=== PATIENT | male | born 1960 | race Caucasian/White ===

== ENCOUNTER → 2017-06-24 | Outpatient (CLI) | payer SELFPAY ==
[~2017-06-24] MED LIST: ACYC400 PO; CEPH500; Cipro500 MG PO; DAPS100; Flagyl250 MG PO; LAMZIDT; OXYACE5T PO; PREG75 PO; PROC5 PO; REYATAZ; RITO100
[2017-06-24 17:00] LABS: BASOPHILS ABSOLUTE AUTO 0.02 K/mm3 (0.00-0.23); BASOPHILS PERCENT AUTO 0 % (0-2); EOSINOPHILS ABSOLUTE AUTO 0.03 K/mm3 (0.00-0.68); EOSINOPHILS PERCENT AUTO 1 % (0-6); Hematocrit 42.3 % (37.0-53.0); Hemoglobin 13.7 g/dL (13.5-17.5); IMMATURE GRAN ABSOLUTE AUTO 0.02 K/mm3 (0.00-0.10); IMMATURE GRAN PERCENT AUTO 0 % (0-1); LYMPHOCYTES PERCENT AUTO 27 % (21-46); MONOCYTES ABSOLUTE AUTO 0.36 K/mm3 (0.16-1.47); MONOCYTES PERCENT AUTO 6 % (4-13); Mean Corpuscular HGB 29.3 pg (26.0-34.0); Mean Corpuscular HGB Conc 32.4 g/dL (31.5-36.5); Mean Corpuscular Volume 91 fL (80-100); Mean Platelet Volume 10.3 fL (9.1-12.4); NEUTROPHILS ABSOLUTE AUTO 3.96 K/mm3 (1.96-9.15); NEUTROPHILS PERCENT AUTO 66 % (41-73); Platelet Count 213 K/mm3 (150-400); RDW Coefficient Variation 14.1 % (11.7-14.2); RDW Standard Deviation 46.6 fL (35.1-46.3); Red Blood Cell Count 4.67 M/mm3 (4.30-5.90); White Blood Cell Count 5.99 K/mm3 (4.00-11.30)
[2017-06-24 17:16] LABS: Alanine Aminotransfer (ALT/SGP 28 U/L (12-78); Albumin/Globulin Ratio 0.7 (0.8-1.8); Alk Phos 99 U/L (50-136); Anion Gap 7 mmol/L (6-16); Aspartate Aminotrans (AST/SGOT 37 U/L (12-37); Bilirubin, Total 0.3 mg/dL (0.1-1.0); Blood Urea Nitrogen 11 mg/dL (8-24); Bun/Creatinine Ratio 18.5 (12.0-20.0); CO2, Blood 26 mmol/L (21-32); Calcium, Blood 8.3 mg/dL (8.5-10.1); Chloride, Blood 104 mmol/L (98-108); Globulin, Blood 4.3 g/dL (2.2-4.0); Glomerular Filtration Rate >60 (60-); Glucose, Blood 75 mg/dL (70-99); Potassium, Blood 4.5 mmol/L (3.5-5.5); Sodium, Blood 137 mmol/L (136-145); Total Protein, Blood 7.3 g/dL (6.4-8.2)
== END ==
LOC: LAB 16:28
PROVIDERS: Nurse Practitioner
DX: R53.83 Other fatigue (principal)
CPT/HCPCS: 80053; 83690; 85025

== ENCOUNTER 2017-06-25 07:41 | Emergency (ER) | payer MEDICARE ==
[~2017-06-25] VITALS: Ht 175.3 cm; Wt 63.5 kg
[~2017-06-25 07:41] MED LIST changes: -Cipro500 MG PO; -Flagyl250 MG PO; -PROC5 PO
[2017-06-25 11:51] LABS: Adenovirus F 40/41 Not Detected (NOT DETECT); Astrovirus Not Detected (NOT DETECT); Campylobacter Sp Not Detected (NOT DETECT); Cryptosporidium Not Detected (NOT DETECT); Cyclospora Cayetanensis Not Detected (NOT DETECT); E. Coli O157 Not Detected (NOT DETECT); Enteroaggregative E. coli-EAEC Not Detected (NOT DETECT); Enterotoxigenic E. coli-ETEC Not Detected (NOT DETECT); Giardia Lamblia Not Detected (NOT DETECT); Norovirus GI/GII Not Detected (NOT DETECT); Plesiomonas Shigelloides Not Detected (NOT DETECT); Rotavirus A Not Detected (NOT DETECT); Salmonella Sp Not Detected (NOT DETECT); Shiga Toxin-prod E. coli-STEC Not Detected (NOT DETECT); Shigella/Enteroin E. coli-EIEC Not Detected (NOT DETECT); Vibrio Cholerae Not Detected (NOT DETECT); Vibrio Sp Not Detected (NOT DETECT); Yersinia Enterocolitica Not Detected (NOT DETECT)
[2017-06-25 13:36] LABS: Enteropathogenic E. coli-EPEC Detected (NOT DETECT)
[2017-06-25 13:37] LABS: Entamoeba Histolytica Detected (NOT DETECT); Sapovirus Detected (NOT DETECT)
[2017-06-25] MEDS ORDERED: Flagyl250 MG PO (13:52)
[2017-06-25] MEDS ORDERED: PROC5 PO (13:52)
[2017-06-25] MEDS ORDERED: Cipro500 MG PO (13:52)
== END 2017-06-25 14:50 | disposition home or self-care (01) ==
LOC: ER 07:41
PROVIDERS: Internal Medicine
DX: A04.0 Enteropathogenic Escherichia coli infection (principal); B82.9 Intestinal parasitism, unspecified; B20 Human immunodeficiency virus [HIV] disease; Z88.2 Allergy status to sulfonamides; Z79.2 Long term (current) use of antibiotics; Z79.899 Other long term (current) drug therapy
CPT/HCPCS: 87507; 96374; 96375; 99283; J2405; J3490

== ENCOUNTER 2019-04-15 13:20 | Inpatient (IN) | payer MEDICARE ==
[~2019-04-15] VITALS: Ht 175.3 cm; Wt 67.9 kg
[~2019-04-15 13:20] MED LIST changes: +Cipro500 MG PO; -DAPS100; +DAPS100 PO; +Flagyl250 MG PO; +NORVIR100 MG PO; +PROC5 PO; -REYATAZ; +REYATAZ PO; -RITO100
[2019-04-15 14:55] LABS: Source, Urine Clean Catch
[2019-04-15 14:58] LABS: Bilirubin, Urine Neg (Neg); Blood, Urine Neg (Neg); Glucose Qualitative, Urine Neg (Neg); Ketones, Urine Neg (Neg); Leukocyte Esterase, Urine 1+ (Neg); Nitrite, Urine Neg (Neg); Protein, Urine Neg (Neg); Specific Gravity, Urine 1.015 (1.003-1.022); Urobilinogen, Urine NORM (Normal)
[2019-04-15 15:03] LABS: BASOPHILS ABSOLUTE AUTO 0.01 K/mm3 (0.00-0.23); BASOPHILS PERCENT AUTO 0 % (0-2); EOSINOPHILS ABSOLUTE AUTO 0.02 K/mm3 (0.00-0.68); EOSINOPHILS PERCENT AUTO 0 % (0-6); Hematocrit 42.5 % (37.0-53.0); Hemoglobin 14.3 g/dL (13.5-17.5); IMMATURE GRAN ABSOLUTE AUTO 0.03 K/mm3 (0.00-0.10); IMMATURE GRAN PERCENT AUTO 0 % (0-1); LYMPHOCYTES ABSOLUTE AUTO 0.66 K/mm3 (0.84-5.20); LYMPHOCYTES PERCENT AUTO 5 % (21-46); MONOCYTES ABSOLUTE AUTO 0.67 K/mm3 (0.16-1.47); MONOCYTES PERCENT AUTO 5 % (4-13); Mean Corpuscular HGB 30.4 pg (26.0-34.0); Mean Corpuscular HGB Conc 33.6 g/dL (31.5-36.5); Mean Corpuscular Volume 90 fL (80-100); Mean Platelet Volume 10.2 fL (9.1-12.4); NEUTROPHILS ABSOLUTE AUTO 11.63 K/mm3 (1.96-9.15); NEUTROPHILS PERCENT AUTO 89 % (41-73); Platelet Count 182 K/mm3 (150-400); RDW Coefficient Variation 15.2 % (11.7-14.2); RDW Standard Deviation 50.2 fL (35.1-46.3); White Blood Cell Count 13.02 K/mm3 (4.00-11.30)
[2019-04-15 15:21] LABS: Alanine Aminotransfer (ALT/SGP 27 U/L (12-78); Albumin, Blood 3.6 g/dL (3.4-5.0); Alk Phos 68 U/L (50-136); Anion Gap 6 mmol/L (6-16); Aspartate Aminotrans (AST/SGOT 28 U/L (12-37); Bilirubin, Total 0.5 mg/dL (0.1-1.0); Blood Urea Nitrogen 12 mg/dL (8-24); Bun/Creatinine Ratio 17.8 (12.0-20.0); CO2, Blood 24 mmol/L (21-32); Calcium, Blood 8.7 mg/dL (8.5-10.1); Chloride, Blood 107 mmol/L (98-108); Creatinine, Blood 0.67 mg/dL (0.60-1.20); Globulin, Blood 3.7 g/dL (2.2-4.0); Glomerular Filtration Rate >60 (60-); Glucose, Blood 86 mg/dL (70-99); Potassium, Blood 3.8 mmol/L (3.5-5.5); Sodium, Blood 137 mmol/L (136-145); Total Protein, Blood 7.3 g/dL (6.4-8.2)
[2019-04-15 15:24] LABS: Appearance, Urine Hazy (Clear); Color, Urine Yellow (P-Yellow)
[2019-04-15 15:26] LABS: Bacteria Rare /hpf; Red Blood Cells, Urine 0-2 /hpf (0-2); Squamous Epithelial Cells Not Seen /hpf (Few)
[2019-04-15] MEDS ORDERED: TRIUMEQ TABLET1 EACH PO (19:14)
[2019-04-15] MEDS ORDERED: TAMSULOSIN HCL0.4 M1 PO (19:15)
[2019-04-16 05:07] LABS: BASOPHILS ABSOLUTE AUTO 0.01 K/mm3 (0.00-0.23); BASOPHILS PERCENT AUTO 0 % (0-2); EOSINOPHILS ABSOLUTE AUTO 0.03 K/mm3 (0.00-0.68); EOSINOPHILS PERCENT AUTO 0 % (0-6); Hematocrit 37.3 % (37.0-53.0); Hemoglobin 12.2 g/dL (13.5-17.5); IMMATURE GRAN ABSOLUTE AUTO 0.02 K/mm3 (0.00-0.10); IMMATURE GRAN PERCENT AUTO 0 % (0-1); LYMPHOCYTES ABSOLUTE AUTO 0.71 K/mm3 (0.84-5.20); LYMPHOCYTES PERCENT AUTO 9 % (21-46); MONOCYTES ABSOLUTE AUTO 0.23 K/mm3 (0.16-1.47); MONOCYTES PERCENT AUTO 3 % (4-13); Mean Corpuscular HGB Conc 32.7 g/dL (31.5-36.5); Mean Corpuscular Volume 92 fL (80-100); NEUTROPHILS ABSOLUTE AUTO 7.29 K/mm3 (1.96-9.15); NEUTROPHILS PERCENT AUTO 88 % (41-73); Platelet Count 155 K/mm3 (150-400); RDW Coefficient Variation 15.3 % (11.7-14.2); RDW Standard Deviation 50.2 fL (35.1-46.3); Red Blood Cell Count 4.06 M/mm3 (4.30-5.90); White Blood Cell Count 8.29 K/mm3 (4.00-11.30)
[2019-04-16 05:24] LABS: Anion Gap 7 mmol/L (6-16); Blood Urea Nitrogen 14 mg/dL (8-24); Bun/Creatinine Ratio 16.6 (12.0-20.0); CO2, Blood 24 mmol/L (21-32); Calcium, Blood 7.7 mg/dL (8.5-10.1); Chloride, Blood 107 mmol/L (98-108); Creatinine, Blood 0.84 mg/dL (0.60-1.20); Glomerular Filtration Rate >60 (60-); Glucose, Blood 88 mg/dL (70-99); Potassium, Blood 3.6 mmol/L (3.5-5.5); Sodium, Blood 138 mmol/L (136-145)
[2019-04-17 09:19] LABS: BASOPHILS ABSOLUTE AUTO 0.02 K/mm3 (0.00-0.23); BASOPHILS PERCENT AUTO 1 % (0-2); EOSINOPHILS ABSOLUTE AUTO 0.16 K/mm3 (0.00-0.68); EOSINOPHILS PERCENT AUTO 4 % (0-6); Hematocrit 36.2 % (37.0-53.0); Hemoglobin 11.9 g/dL (13.5-17.5); IMMATURE GRAN ABSOLUTE AUTO 0.01 K/mm3 (0.00-0.10); IMMATURE GRAN PERCENT AUTO 0 % (0-1); LYMPHOCYTES ABSOLUTE AUTO 1.04 K/mm3 (0.84-5.20); LYMPHOCYTES PERCENT AUTO 27 % (21-46); MONOCYTES ABSOLUTE AUTO 0.23 K/mm3 (0.16-1.47); MONOCYTES PERCENT AUTO 6 % (4-13); Mean Corpuscular HGB 30.1 pg (26.0-34.0); Mean Corpuscular HGB Conc 32.9 g/dL (31.5-36.5); Mean Corpuscular Volume 92 fL (80-100); Mean Platelet Volume 10.6 fL (9.1-12.4); NEUTROPHILS ABSOLUTE AUTO 2.44 K/mm3 (1.96-9.15); NEUTROPHILS PERCENT AUTO 63 % (41-73); Platelet Count 148 K/mm3 (150-400); RDW Standard Deviation 49.9 fL (35.1-46.3); Red Blood Cell Count 3.95 M/mm3 (4.30-5.90)
[2019-04-18 05:03] LABS: BASOPHILS ABSOLUTE AUTO 0.02 K/mm3 (0.00-0.23); BASOPHILS PERCENT AUTO 0 % (0-2); EOSINOPHILS ABSOLUTE AUTO 0.11 K/mm3 (0.00-0.68); EOSINOPHILS PERCENT AUTO 2 % (0-6); Hematocrit 38.7 % (37.0-53.0); Hemoglobin 12.8 g/dL (13.5-17.5); IMMATURE GRAN ABSOLUTE AUTO 0.02 K/mm3 (0.00-0.10); IMMATURE GRAN PERCENT AUTO 0 % (0-1); LYMPHOCYTES PERCENT AUTO 27 % (21-46); MONOCYTES ABSOLUTE AUTO 0.32 K/mm3 (0.16-1.47); MONOCYTES PERCENT AUTO 7 % (4-13); Mean Corpuscular HGB 29.9 pg (26.0-34.0); Mean Corpuscular HGB Conc 33.1 g/dL (31.5-36.5); Mean Corpuscular Volume 90 fL (80-100); Mean Platelet Volume 10.9 fL (9.1-12.4); NEUTROPHILS ABSOLUTE AUTO 2.84 K/mm3 (1.96-9.15); NEUTROPHILS PERCENT AUTO 63 % (41-73); Platelet Count 174 K/mm3 (150-400); RDW Coefficient Variation 15.1 % (11.7-14.2); RDW Standard Deviation 49.3 fL (35.1-46.3); Red Blood Cell Count 4.28 M/mm3 (4.30-5.90); White Blood Cell Count 4.51 K/mm3 (4.00-11.30)
[2019-04-18 05:18] LABS: Anion Gap 6 mmol/L (6-16); Blood Urea Nitrogen 11 mg/dL (8-24); Bun/Creatinine Ratio 13.6 (12.0-20.0); CO2, Blood 26 mmol/L (21-32); Calcium, Blood 8.5 mg/dL (8.5-10.1); Chloride, Blood 109 mmol/L (98-108); Creatinine, Blood 0.81 mg/dL (0.60-1.20); Glomerular Filtration Rate >60 (60-); Glucose, Blood 83 mg/dL (70-99); Sodium, Blood 141 mmol/L (136-145)
[2019-04-19] MEDS ORDERED: AMOCLA500 PO (11:28)
[2019-04-22 04:07] LABS: ANTI-DNASE B STREP ANTIBODIES <78 U/mL (0-120)
[2019-04-22 17:07] LABS: LOG10 HIV-1 RNA 1.477 (.)
== END 2019-04-19 11:46 | disposition home or self-care (01) | DRG 976 ==
LOC: ER 13:20 → MEDS 18:37
PROVIDERS: Internal Medicine; Internal Medicine Infectious Disease; Nurse Practitioner Acute Care; Physician Assistant; ADMIT Family Medicine
DX: A41.9 Sepsis, unspecified organism (principal); B20 Human immunodeficiency virus [HIV] disease; N49.2 Inflammatory disorders of scrotum; F17.210 Nicotine dependence, cigarettes, uncomplicated; F32.9 Major depressive disorder, single episode, unspecified; G43.909 Migraine, unspecified, not intractable, without status migrainosus
CPT/HCPCS: 36415; 74177; 76870; 80048; 80053; 80202; 81001; 83605; 83690; 85025; 86060; 86215; 87040; 87086; 87536; 96361; 96365-59; 96375; 99285-25; A9270; J0696; J1170; J1885; J2405; J2543; J3370; J7030; J7050; Q9967

== ENCOUNTER → 2019-06-12 | Outpatient (CLI) | payer MEDICARE ==
[~2019-06-12] MED LIST changes: +AMOCLA500 PO; +TAMSULOSIN HCL0.4 M1 PO; +TRIUMEQ TABLET1 EACH PO
== END | disposition home or self-care (01) ==
LOC: LAB 07:54 → LAB SHORT 07:54
DX: L02.414 Cutaneous abscess of left upper limb (principal); B95.61 Methicillin susceptible Staphylococcus aureus infection as the cause of diseases classified elsewhere
CPT/HCPCS: 87070; 87075; 87077; 87147; 87186; 87205

== ENCOUNTER 2019-07-04 18:05 | Emergency (ER) | payer MEDICARE ==
[~2019-07-04] VITALS: Ht 175.3 cm; Wt 66.7 kg
[2019-07-04] MEDS ORDERED: Vibramycin100 MG PO (18:25)
[2019-07-04] MEDS ORDERED: CEPH500 PO (18:25)
== END 2019-07-04 19:20 | disposition home or self-care (01) ==
LOC: ER 18:05
DX: L03.115 Cellulitis of right lower limb (principal); B20 Human immunodeficiency virus [HIV] disease; Z88.2 Allergy status to sulfonamides; Z79.899 Other long term (current) drug therapy
CPT/HCPCS: 99283; A9270-GY

== ENCOUNTER → 2019-10-14 | Outpatient (CLI) | payer MEDICARE ==
[~2019-10-14] MED LIST changes: +CEPH500 PO; +Robaxin-750750 MG PO; +Vibramycin100 MG PO
== END | disposition home or self-care (01) ==
LOC: LAB SHORT 18:47 → LAB 18:47
DX: L02.91 Cutaneous abscess, unspecified (principal)
CPT/HCPCS: 87070; 87075; 87077; 87147; 87186; 87205

== ENCOUNTER 2019-11-07 08:13 | Emergency (ER) | payer MEDICARE ==
[~2019-11-07] VITALS: Ht 175.3 cm; Wt 68.0 kg
[~2019-11-07 08:13] MED LIST changes: -Robaxin-750750 MG PO
[2019-11-07 09:00] LABS: Source, Urine Catheter
[2019-11-07 09:10] LABS: Appearance, Urine Bloody (Clear); Bilirubin, Urine Neg (Neg); Blood, Urine 5+ (Neg); Color, Urine Brown (P-Yellow); Glucose Qualitative, Urine Neg (Neg); Ketones, Urine 1+ (Neg); Leukocyte Esterase, Urine 1+ (Neg); Nitrite, Urine Neg (Neg); Urobilinogen, Urine NORM (Normal)
[2019-11-07 09:18] LABS: Protein, Urine 3+ (Neg)
[2019-11-07 09:20] LABS: BASOPHILS ABSOLUTE AUTO 0.02 K/mm3 (0.00-0.23); BASOPHILS PERCENT AUTO 0 % (0-2); EOSINOPHILS ABSOLUTE AUTO 0.07 K/mm3 (0.00-0.68); EOSINOPHILS PERCENT AUTO 1 % (0-6); Hematocrit 38.9 % (37.0-53.0); Hemoglobin 12.6 g/dL (13.5-17.5); IMMATURE GRAN ABSOLUTE AUTO 0.06 K/mm3 (0.00-0.10); IMMATURE GRAN PERCENT AUTO 1 % (0-1); LYMPHOCYTES ABSOLUTE AUTO 0.76 K/mm3 (0.84-5.20); LYMPHOCYTES PERCENT AUTO 13 % (21-46); MONOCYTES ABSOLUTE AUTO 0.39 K/mm3 (0.16-1.47); MONOCYTES PERCENT AUTO 6 % (4-13); Mean Corpuscular HGB 29.7 pg (26.0-34.0); Mean Corpuscular HGB Conc 32.4 g/dL (31.5-36.5); Mean Corpuscular Volume 92 fL (80-100); Mean Platelet Volume 10.4 fL (9.1-12.4); NEUTROPHILS ABSOLUTE AUTO 4.78 K/mm3 (1.96-9.15); NEUTROPHILS PERCENT AUTO 79 % (41-73); Platelet Count 190 K/mm3 (150-400); RDW Standard Deviation 50.4 fL (35.1-46.3); Red Blood Cell Count 4.24 M/mm3 (4.30-5.90); White Blood Cell Count 6.08 K/mm3 (4.00-11.30)
[2019-11-07 09:28] LABS: Red Blood Cells, Urine TNTC /hpf (0-2)
[2019-11-07 09:31] LABS: Squamous Epithelial Cells Rare /hpf (Few)
[2019-11-07 09:37] LABS: Bacteria Mod /hpf
[2019-11-07 09:41] LABS: Alanine Aminotransfer (ALT/SGP 17 U/L (12-78); Albumin, Blood 3.4 g/dL (3.4-5.0); Albumin/Globulin Ratio 0.9 (0.8-1.8); Alk Phos 81 U/L (50-136); Anion Gap 6 mmol/L (6-16); Aspartate Aminotrans (AST/SGOT 22 U/L (12-37); Bilirubin, Total 0.4 mg/dL (0.1-1.0); Blood Urea Nitrogen 20 mg/dL (8-24); Bun/Creatinine Ratio 18.9 (12.0-20.0); CO2, Blood 27 mmol/L (21-32); Calcium, Blood 9.1 mg/dL (8.5-10.1); Chloride, Blood 107 mmol/L (98-108); Creatinine, Blood 1.06 mg/dL (0.60-1.20); Globulin, Blood 3.6 g/dL (2.2-4.0); Glomerular Filtration Rate >60 (60-); Glucose, Blood 102 mg/dL (70-99); Sodium, Blood 140 mmol/L (136-145)
[2019-11-07] MEDS ORDERED: Robaxin-750750 MG PO (10:43)
== END 2019-11-07 11:04 | disposition home or self-care (01) ==
LOC: ER 08:13
PROVIDERS: Physician Assistant
DX: R33.9 Retention of urine, unspecified (principal); Z88.2 Allergy status to sulfonamides; Z79.899 Other long term (current) drug therapy; B20 Human immunodeficiency virus [HIV] disease; F17.200 Nicotine dependence, unspecified, uncomplicated; Z98.890 Other specified postprocedural states
CPT/HCPCS: 36415; 51702; 51798; 80053; 81001; 85025; 87086; 96374-59; 99283-25; J3010

== ENCOUNTER 2020-08-29 05:47 | Emergency (ER) | payer MEDICARE ==
[~2020-08-29] VITALS: Ht 165.1 cm; Wt 70.3 kg
[~2020-08-29 05:47] MED LIST changes: +Robaxin-750750 MG PO
[2020-08-29 06:09] LABS: Hematocrit 43.8 % (37.0-53.0); Hemoglobin 14.4 g/dL (13.5-17.5); Mean Corpuscular HGB Conc 32.9 g/dL (31.5-36.5); Mean Corpuscular Volume 88 fL (80-100); Mean Platelet Volume 10.2 fL (9.1-12.4); Platelet Count 252 K/mm3 (150-400); RDW Coefficient Variation 15.4 % (11.7-14.2); RDW Standard Deviation 49.2 fL (35.1-46.3); Red Blood Cell Count 4.96 M/mm3 (4.30-5.90); White Blood Cell Count 8.05 K/mm3 (4.00-11.30)
[2020-08-29 06:27] LABS: Alanine Aminotransfer (ALT/SGP 21 U/L (12-78); Albumin, Blood 3.6 g/dL (3.4-5.0); Albumin/Globulin Ratio 0.9 (0.8-1.8); Alk Phos 94 U/L (50-136); Anion Gap 4 mmol/L (6-16); Aspartate Aminotrans (AST/SGOT 18 U/L (12-37); Bilirubin, Total 0.3 mg/dL (0.1-1.0); Blood Urea Nitrogen 12 mg/dL (8-24); Bun/Creatinine Ratio 13.5 (12.0-20.0); CO2, Blood 27 mmol/L (21-32); Calcium, Blood 8.7 mg/dL (8.5-10.1); Chloride, Blood 105 mmol/L (98-108); Creatinine, Blood 0.89 mg/dL (0.60-1.20); Glomerular Filtration Rate >60 (60-); Glucose, Blood 103 mg/dL (70-99); Potassium, Blood 4.1 mmol/L (3.5-5.5); Sodium, Blood 136 mmol/L (136-145); Total Protein, Blood 7.6 g/dL (6.4-8.2)
[2020-08-29 06:40] LABS: BASOPHILS ABSOLUTE MAN 0.08 K/mm3 (0.00-0.23); BASOPHILS PERCENT MAN 1 % (0-2); EOSINOPHILS ABSOLUTE MAN 0.24 K/mm3 (0.00-0.68); EOSINOPHILS PERCENT MAN 3 % (0-6); LYMPHOCYTES ABSOLUTE MAN 1.36 K/mm3 (0.84-5.20); LYMPHOCYTES PERCENT MAN 17 % (21-46); MONOCYTES ABSOLUTE MAN 0.48 K/mm3 (0.16-1.47); MONOCYTES PERCENT MAN 6 % (4-13); NEUTROPHILS ABSOLUTE MAN 5.87 K/mm3 (1.96-9.15); SEG NEUTROPHILS PERCENT MAN 73 % (41-73); TOTAL CELLS COUNTED 100
[2020-08-29 06:42] LABS: Source, Urine Clean Catch
[2020-08-29 06:47] LABS: Bilirubin, Urine Neg (Neg); Blood, Urine Neg (Neg); Glucose Qualitative, Urine Neg (Neg); Ketones, Urine Neg (Neg); Leukocyte Esterase, Urine 1+ (Neg); Nitrite, Urine Neg (Neg); Protein, Urine Neg (Neg); Specific Gravity, Urine 1.025 (1.003-1.022); Urobilinogen, Urine NORM (Normal)
[2020-08-29 07:02] LABS: Appearance, Urine Clear (Clear); Color, Urine Yellow (P-Yellow)
[2020-08-29 07:03] LABS: Bacteria Few /hpf; Squamous Epithelial Cells Few /hpf (Few)
[2020-08-29] MEDS ORDERED: Zofran4 MG PO (07:52)
== END 2020-08-29 09:19 | disposition home or self-care (01) ==
LOC: ER 05:47
PROVIDERS: Emergency Medicine
DX: R11.2 Nausea with vomiting, unspecified (principal); R19.7 Diarrhea, unspecified; F17.210 Nicotine dependence, cigarettes, uncomplicated; Z21 Asymptomatic human immunodeficiency virus [HIV] infection status; Z79.899 Other long term (current) drug therapy; Z88.2 Allergy status to sulfonamides
CPT/HCPCS: 80053; 81001; 83690; 85007; 85027; 87086; 96374; 99284-25; A9270; J2405; J7030

== ENCOUNTER 2020-10-14 20:16 | Emergency (ER) | payer MEDICARE ==
[~2020-10-14] VITALS: Ht 175.3 cm; Wt 68.0 kg
[~2020-10-14 20:16] MED LIST changes: +Zofran4 MG PO
== END 2020-10-14 22:19 | disposition home or self-care (01) ==
LOC: ER 20:16
DX: S52.501A Unspecified fracture of the lower end of right radius, initial encounter for closed fracture (principal); F17.210 Nicotine dependence, cigarettes, uncomplicated; Z88.2 Allergy status to sulfonamides; Y04.0XXA Assault by unarmed brawl or fight, initial encounter
CPT/HCPCS: 73090; 73120; 96372; 99284-25; A9270; J1885

== ENCOUNTER → 2021-06-10 | Outpatient (CLI) | payer MEDICARE, OTHER | END | disposition home or self-care (01) | LOC: LAB SHORT 13:00 → LAB 13:00 | DX: S67.21XA Crushing injury of right hand, initial encounter (principal) | CPT/HCPCS: 87070; 87075; 87205 ==

== ENCOUNTER 2021-12-16 01:30 | Inpatient (IN) | payer MEDICARE, OTHER ==
[~2021-12-16] VITALS: Ht 172.7 cm; Wt 67.6 kg
[2021-12-16 02:37] LABS: BASOPHILS ABSOLUTE AUTO 0.02 K/mm3 (0.00-0.23); BASOPHILS PERCENT AUTO 1 % (0-2); EOSINOPHILS ABSOLUTE AUTO 0.27 K/mm3 (0.00-0.68); EOSINOPHILS PERCENT AUTO 7 % (0-6); Hematocrit 31.3 % (37.0-53.0); Hemoglobin 9.4 g/dL (13.5-17.5); IMMATURE GRAN ABSOLUTE AUTO 0.03 K/mm3 (0.00-0.10); IMMATURE GRAN PERCENT AUTO 1 % (0-1); LYMPHOCYTES ABSOLUTE AUTO 0.74 K/mm3 (0.84-5.20); LYMPHOCYTES PERCENT AUTO 19 % (21-46); MONOCYTES ABSOLUTE AUTO 0.25 K/mm3 (0.16-1.47); MONOCYTES PERCENT AUTO 6 % (4-13); Mean Corpuscular HGB 23.3 pg (26.0-34.0); Mean Corpuscular Volume 78 fL (80-100); NEUTROPHILS ABSOLUTE AUTO 2.59 K/mm3 (1.96-9.15); NEUTROPHILS PERCENT AUTO 66 % (41-73); Platelet Count 293 K/mm3 (150-400); RDW Standard Deviation 48.1 fL (35.1-46.3); Red Blood Cell Count 4.03 M/mm3 (4.30-5.90)
[2021-12-16] MEDS ORDERED: SILDENAFIL CIT100 MG PO (02:44)
[2021-12-16 02:55] LABS: Albumin, Blood 2.7 g/dL (3.4-5.0); Albumin/Globulin Ratio 0.7 (0.8-1.8); Bilirubin, Total 0.2 mg/dL (0.1-1.0); Bun/Creatinine Ratio 13.7 (12.0-20.0); Creatinine, Blood 0.73 mg/dL (0.60-1.20); Globulin, Blood 4.1 g/dL (2.2-4.0); Potassium, Blood 4.2 mmol/L (3.5-5.5); Total Protein, Blood 6.8 g/dL (6.4-8.2)
[2021-12-16 05:10] LABS: Source, Urine Voided
[2021-12-16 05:17] LABS: Appearance, Urine Clear (Clear); Bilirubin, Urine Neg (Neg); Blood, Urine 3+ (Neg); Color, Urine Yellow (P-Yellow); Glucose Qualitative, Urine Neg (Neg); Ketones, Urine Neg (Neg); Leukocyte Esterase, Urine Neg (Neg); Nitrite, Urine Neg (Neg); Protein, Urine Neg (Neg); Urobilinogen, Urine 1+ (Normal)
[2021-12-16 05:35] LABS: Bacteria Few /hpf; Squamous Epithelial Cells Few /hpf (Few); White Blood Cells, Urine 0-2 /hpf (0-5)
--- NOTE | 2021-12-16 18:42 | NUR ---
ARRIVAL TO UNIT PT ARRIVED TO UNIT AT 1800. PT TRANSFERED SELF FROM WHEELCHAIR TO BED. PT REPORTS PAIN LOCALIZED TO SCROTUM AND PENIS. VERY EDEMETOUS HARD AND SCALY TO TOUCH. NO OPEN SORES SEEN OR NOTICED. PT DENIES BURNING, PAIN OR DISCOMFORT WITH VOIDING. PT CURRENTLY SITTING UP IN BED EATING A SANDWICH, DENIES FURTHER NEEDS. ORIENTED TO UNIT.
--- NOTE | 2021-12-17 04:18 | NUR ---
SHIFT SUMMARY NO ACUTE CHANGES THIS SHIFT. PT RESTED WELL. IV ABX PER ORDERS. INDEP IN ROOM. PT REPORTS SCROTAL SWELLING SLOWLY IMPROVING. 25 MCG IV FENTANYL/TYLENOL/TORADOL FOR PAIN MANAGEMENT. USES CALL LIGHT APPROPRIATELY.
[2021-12-17 05:28] LABS: BASOPHILS ABSOLUTE AUTO 0.01 K/mm3 (0.00-0.23); BASOPHILS PERCENT AUTO 0 % (0-2); EOSINOPHILS ABSOLUTE AUTO 0.26 K/mm3 (0.00-0.68); EOSINOPHILS PERCENT AUTO 5 % (0-6); Hematocrit 30.6 % (37.0-53.0); IMMATURE GRAN ABSOLUTE AUTO 0.03 K/mm3 (0.00-0.10); IMMATURE GRAN PERCENT AUTO 1 % (0-1); LYMPHOCYTES ABSOLUTE AUTO 1.25 K/mm3 (0.84-5.20); LYMPHOCYTES PERCENT AUTO 24 % (21-46); MONOCYTES PERCENT AUTO 8 % (4-13); Mean Corpuscular HGB 22.9 pg (26.0-34.0); Mean Corpuscular HGB Conc 29.4 g/dL (31.5-36.5); Mean Corpuscular Volume 78 fL (80-100); Mean Platelet Volume 10.6 fL (9.1-12.4); NEUTROPHILS ABSOLUTE AUTO 3.25 K/mm3 (1.96-9.15); NEUTROPHILS PERCENT AUTO 63 % (41-73); Platelet Count 294 K/mm3 (150-400); RDW Coefficient Variation 17.4 % (11.7-14.2); RDW Standard Deviation 49.1 fL (35.1-46.3); Red Blood Cell Count 3.93 M/mm3 (4.30-5.90)
[2021-12-17 05:47] LABS: Bun/Creatinine Ratio 21.4 (12.0-20.0); Calcium, Blood 8.4 mg/dL (8.5-10.1); Creatinine, Blood 0.94 mg/dL (0.60-1.20); Potassium, Blood 4.1 mmol/L (3.5-5.5)
--- NOTE | 2021-12-17 18:06 | NUR ---
SHIFT SUMMARY PT IS FEELING BETTER & WAS EVEN ABLE TO AMBULATE TODAY. MEDICATED x 2 w/ FENTANYL & x 1 w/ TYLENOL.
--- NOTE | 2021-12-18 06:18 | NUR ---
SHIFT SUMMARY NO ACUTE CHANGES. IV ABX PER ORDERS. TYLENOL FOR PAIN PRN. PT REPORTS SCROTAL SWELLING IMPROVING. INDEP TO RESTROOM. CALL LIGHT WITHIN REACH.
[2021-12-18] MEDS ORDERED: ACET325 PO (09:51)
[2021-12-18] MEDS ORDERED: PROBIOTIC1 EA13 PO (09:52)
[2021-12-18] MEDS ORDERED: Norco 5-325 Ta1 EACH PO (09:54)
[2021-12-18] MEDS ORDERED: AMOCLA875 PO (09:54)
[2021-12-18] MEDS ORDERED: XOLIDO118 ML TOP (09:58)
--- NOTE | 2021-12-18 10:15 | NUR ---
DISCHARGE DECLINED WC OUT AFTER DISCUSSING DC INFO. PLEASANT & EXCITED FOR DC. MEDS CALLED TO [facility] EXCEPT [facility] WHICH SCRIPT WAS GIVEN.
== END 2021-12-18 10:15 | disposition home or self-care (01) | DRG 872 ==
LOC: ER 01:30 → ERHOLD 04:20 → SURS 17:50
PROVIDERS: Emergency Medicine; Internal Medicine; ADMIT Family Medicine
DX: A41.9 Sepsis, unspecified organism (principal); N49.2 Inflammatory disorders of scrotum; Z21 Asymptomatic human immunodeficiency virus [HIV] infection status; F17.210 Nicotine dependence, cigarettes, uncomplicated; F12.10 Cannabis abuse, uncomplicated; Z88.2 Allergy status to sulfonamides; Z79.899 Other long term (current) drug therapy; Z86.19 Personal history of other infectious and parasitic diseases; Z98.890 Other specified postprocedural states
CPT/HCPCS: 36415; 74177; 80048; 80053; 81001; 83605; 83690; 85025; 87040; 93005; 93010; 96365; 96366; 96367; 96375; 99285-25; A9270; J0295; J1650; J1885; J2270; J2405; J3010; J3370; J7050; Q9967

== ENCOUNTER 2022-01-14 11:35 | Emergency (ER) | payer MEDICARE, OTHER ==
[~2022-01-14] VITALS: Ht 175.3 cm; Wt 68.0 kg
[~2022-01-14 11:35] MED LIST changes: +ACET325 PO; +AMOCLA875 PO; +Norco 5-325 Ta1 EACH PO; +PROBIOTIC1 EA13 PO; +SILDENAFIL CIT100 MG PO; +TRIUMEQ 600-501 EACH PO; -TRIUMEQ TABLET1 EACH PO; +XOLIDO118 ML TOP
[2022-01-14 17:13] LABS: BASOPHILS ABSOLUTE AUTO 0.01 K/mm3 (0.00-0.23); BASOPHILS PERCENT AUTO 0 % (0-2); EOSINOPHILS ABSOLUTE AUTO 0.17 K/mm3 (0.00-0.68); EOSINOPHILS PERCENT AUTO 3 % (0-6); Hematocrit 27.3 % (37.0-53.0); Hemoglobin 8.6 g/dL (13.5-17.5); IMMATURE GRAN ABSOLUTE AUTO 0.01 K/mm3 (0.00-0.10); IMMATURE GRAN PERCENT AUTO 0 % (0-1); LYMPHOCYTES ABSOLUTE AUTO 0.94 K/mm3 (0.84-5.20); LYMPHOCYTES PERCENT AUTO 19 % (21-46); MONOCYTES ABSOLUTE AUTO 0.28 K/mm3 (0.16-1.47); MONOCYTES PERCENT AUTO 6 % (4-13); Mean Corpuscular HGB Conc 31.5 g/dL (31.5-36.5); Mean Corpuscular Volume 76 fL (80-100); Mean Platelet Volume 10.3 fL (9.1-12.4); NEUTROPHILS ABSOLUTE AUTO 3.54 K/mm3 (1.96-9.15); NEUTROPHILS PERCENT AUTO 72 % (41-73); Platelet Count 166 K/mm3 (150-400); RDW Coefficient Variation 16.7 % (11.7-14.2); RDW Standard Deviation 46.3 fL (35.1-46.3); Red Blood Cell Count 3.59 M/mm3 (4.30-5.90); White Blood Cell Count 4.95 K/mm3 (4.00-11.30)
[2022-01-14 17:32] LABS: Albumin, Blood 2.5 g/dL (3.4-5.0); Albumin/Globulin Ratio 0.7 (0.8-1.8); Bilirubin, Total 0.2 mg/dL (0.1-1.0); Bun/Creatinine Ratio 19.6 (12.0-20.0); Calcium, Blood 8.2 mg/dL (8.5-10.1); Creatinine, Blood 0.82 mg/dL (0.60-1.20); Globulin, Blood 3.8 g/dL (2.2-4.0); Potassium, Blood 3.5 mmol/L (3.5-5.5); Total Protein, Blood 6.3 g/dL (6.4-8.2)
[2022-01-14] MEDS ORDERED: DOXY100 PO (20:33)
[2022-01-14] MEDS ORDERED: AMOCLA875 PO (20:33)
== END 2022-01-14 20:54 | disposition home or self-care (01) ==
LOC: ER 11:35
PROVIDERS: Student in an Organized Health Care Education/Training Program
DX: N49.2 Inflammatory disorders of scrotum (principal); F17.210 Nicotine dependence, cigarettes, uncomplicated; Z21 Asymptomatic human immunodeficiency virus [HIV] infection status; Z79.899 Other long term (current) drug therapy; Z88.2 Allergy status to sulfonamides
CPT/HCPCS: 74177; 80053; 83605; 85025; 87040; 96365-59; 96366; 96375; 99284-25; A9270; J0295; J1170; J7120; Q9967

== ENCOUNTER 2022-01-16 16:10 | Inpatient (IN) | payer MEDICARE, OTHER ==
[~2022-01-16] VITALS: Ht 175.3 cm; Wt 67.9 kg
[~2022-01-16 16:10] MED LIST changes: +DOXY100 PO
[2022-01-16 17:09] LABS: BASOPHILS ABSOLUTE AUTO 0.01 K/mm3 (0.00-0.23); BASOPHILS PERCENT AUTO 0 % (0-2); EOSINOPHILS PERCENT AUTO 7 % (0-6); Hematocrit 34.5 % (37.0-53.0); Hemoglobin 10.3 g/dL (13.5-17.5); Mean Corpuscular HGB 23.1 pg (26.0-34.0); Mean Corpuscular HGB Conc 29.9 g/dL (31.5-36.5); Mean Corpuscular Volume 78 fL (80-100); Mean Platelet Volume 9.8 fL (9.1-12.4); Platelet Count 244 K/mm3 (150-400); RDW Coefficient Variation 16.6 % (11.7-14.2); RDW Standard Deviation 46.5 fL (35.1-46.3); Red Blood Cell Count 4.45 M/mm3 (4.30-5.90)
[2022-01-16 17:21] LABS: IMMATURE GRAN ABSOLUTE AUTO 0.02 K/mm3 (0.00-0.10); IMMATURE GRAN PERCENT AUTO 1 % (0-1); LYMPHOCYTES PERCENT AUTO 45 % (21-46); MONOCYTES ABSOLUTE AUTO 0.17 K/mm3 (0.16-1.47); MONOCYTES PERCENT AUTO 6 % (4-13); NEUTROPHILS PERCENT AUTO 41 % (41-73)
[2022-01-16 17:32] LABS: Albumin/Globulin Ratio 0.7 (0.8-1.8); Bilirubin, Total 0.1 mg/dL (0.1-1.0); Bun/Creatinine Ratio 11.7 (12.0-20.0); Calcium, Blood 8.9 mg/dL (8.5-10.1); Creatinine, Blood 0.77 mg/dL (0.60-1.20); Globulin, Blood 4.2 g/dL (2.2-4.0); Potassium, Blood 3.6 mmol/L (3.5-5.5); Total Protein, Blood 7.2 g/dL (6.4-8.2)
[2022-01-17 05:10] LABS: Hematocrit 31.6 % (37.0-53.0); Hemoglobin 9.4 g/dL (13.5-17.5); Mean Corpuscular HGB 23.2 pg (26.0-34.0); Mean Corpuscular HGB Conc 29.7 g/dL (31.5-36.5); Mean Corpuscular Volume 78 fL (80-100); Mean Platelet Volume 10.2 fL (9.1-12.4); Platelet Count 225 K/mm3 (150-400); RDW Coefficient Variation 16.6 % (11.7-14.2); RDW Standard Deviation 46.8 fL (35.1-46.3); Red Blood Cell Count 4.06 M/mm3 (4.30-5.90); White Blood Cell Count 3.17 K/mm3 (4.00-11.30)
[2022-01-17 05:40] LABS: BASOPHILS ABSOLUTE MAN 0.03 K/mm3 (0.00-0.23); BASOPHILS PERCENT MAN 1 % (0-2); EOSINOPHILS ABSOLUTE MAN 0.28 K/mm3 (0.00-0.68); EOSINOPHILS PERCENT MAN 9 % (0-6); LYMPHOCYTES ABSOLUTE MAN 1.48 K/mm3 (0.84-5.20); LYMPHOCYTES PERCENT MAN 47 % (21-46); MONOCYTES ABSOLUTE MAN 0.15 K/mm3 (0.16-1.47); MONOCYTES PERCENT MAN 5 % (4-13); SEG NEUTROPHILS PERCENT MAN 38 % (41-73); TOTAL CELLS COUNTED 100
[2022-01-17 05:41] LABS: Albumin, Blood 2.4 g/dL (3.4-5.0); Albumin/Globulin Ratio 0.6 (0.8-1.8); Bilirubin, Total 0.2 mg/dL (0.1-1.0); Creatinine, Blood 0.75 mg/dL (0.60-1.20); Globulin, Blood 3.9 g/dL (2.2-4.0); Potassium, Blood 3.6 mmol/L (3.5-5.5); Total Protein, Blood 6.3 g/dL (6.4-8.2)
--- NOTE | 2022-01-17 06:23 | NUR ---
SHIFT SUMMARY PATIENT ARRIVED TO ROOM 339 VIA STRETCHER AT 2006. HE IS ALERT AND ORIENTED X4 AND WAS ABLE TO STAND UP AND SELF TRANFER TO THE HOSPITAL BED. SCROTUM IS ABOUT THE SIZE OF A C[place]AL[place]PE AND PENIS IS SWOLLEN WELL. PATIENT STATES THAT THE SWELLING HAS DECREASED SINCE ENTERING THE HOSPITAL. PATIENT MEDICATED PER EMAR FOR PAIN. NO ACUTE ISSUES NOTED OVERNIGHT. CALL LIGHT WITHIN REACH. REPORT GIVEN TO ONCOMING RN.
--- NOTE | 2022-01-17 07:29 | NUR ---
ASSUMED CARE: PT LAYING IN BED. TALKING TO STAFF DURING BEDSIDE REPORT. STATES PAIN IS TOLERABLE BUT SCROTUM SITE TENDER WHEN PT MOVES THE WRONG WAY. DENIES NEEDS OR CONCERNS AT THIS TIME.
--- NOTE | 2022-01-17 18:39 | NUR ---
SHIFT SUMMARY: PT MEDICATED 3 TIMES FOR PAIN TODAY. STATES SWELLING IS IMPROVED FROM YESTERDAY. EVENING ABX DELAYED DUE TO IV NO LONGER PATENT. 1 ATTEMPT MADE BY THIS RN, CHARGE RNS UNAVAILABLE AT THIS TIME. PHARMACIST AWARE THAT MED IS DELAYED AND WILL CALL WHEN DOSE IS STARTED. PT DENIES FURTHER NEEDS OR CONCERNS AT THIS TIME.
--- NOTE | 2022-01-18 06:50 | NUR ---
SHIFT SUMMARY PATIENT ALERT AND ORIENTED. MEDICATED PER EMAR FOR PAIN. NO ACUTE ISSUES NOTED OVERNIGHT. CALL LIGHT WITHIN REACH. REPORT GIVEN TO ONCOMING RN.
[2022-01-18 08:12] LABS: Vancomycin, Trough 13.3 ug/mL (5.0-10.0)
--- NOTE | 2022-01-18 16:07 | NUR ---
SUMMARY- PT A/O X4, INDEPENDANT IN ROOM. AMBULATED IN HALLWAY AFTER BATH THIS MORNING. TOLERATING FOOD ANF FLUID. SCROTUM MARKEDLY DECREASED SWELLING ACCORDING TO PATIENT. NO OPEN AREAS. REDNESS AND SWELLING. PUT POWDER TO AREA AFTER SHOWER AND PT STATES THIS HELPS PREVENT STICKING. PAIN CONTROLLED WITH VICODIN. ROUTINE IV ABX. LIKELY DC TOMORROW. WILL REPORT TO FRAN JOHNSON.
[2022-01-18 23:06] LABS: % CD 4 POS. LYMPH. 10.7 % (30.8-58.5); ABSOLUTE CD 4 HELPER 171 /uL (359-1519); BASOS 1 % (Not Estab.); EOS 8 % (Not Estab.); EOS (ABSOLUTE) 0.3 x10E3/uL (0.0-0.4); HEMATOCRIT 29.8 % (37.5-51.0); HEMATOLOGY COMMENTS: Note: (.); HEMOGLOBIN 9.4 g/dL (13.0-17.7); IMMATURE GRANS (ABS) 0.1 x10E3/uL (0.0-0.1); IMMATURE GRANULOCYTES 2 % (Not Estab.); LYMPHS 45 % (Not Estab.); LYMPHS (ABSOLUTE) 1.6 x10E3/uL (0.7-3.1); MCH 23.2 pg (26.6-33.0); MCHC 31.5 g/dL (31.5-35.7); MCV 74 fL (79-97); MONOCYTES 7 % (Not Estab.); MONOCYTES(ABSOLUTE) 0.3 x10E3/uL (0.1-0.9); NEUTROPHILS 37 % (Not Estab.); NEUTROPHILS (ABSOLUTE) 1.2 x10E3/uL (1.4-7.0); PLATELETS 234 x10E3/uL (150-450); RBC 4.05 x10E6/uL (4.14-5.80); RDW 15.9 % (11.6-15.4); WBC 3.4 x10E3/uL (3.4-10.8)
[2022-01-19] MEDS ORDERED: Colace100 MG PO (08:35)
[2022-01-19] MEDS ORDERED: HYDACE10B PO (08:37)
[2022-01-19] MEDS ORDERED: AMOCLA875 PO (08:38)
--- NOTE | 2022-01-19 14:35 | NUR ---
PT DC'D WITH DC INSTRUCTIONS 0904- DECLINED WHEELCHAIR, AMBULATORY STAFF ESCORT FOR PT OUTSIDE TO PRIVATE CAR TO DRIVE HOME. RX TO [facility] PT AWARE TO START ABX TONIGHT. MEDICATED WITH [facility]CO PRIOR TO DC PER PT REQ FOR PAIN.
[2022-01-20 08:11] LABS: LOG10 HIV-1 RNA 3.32 (.)
[2022-01-21 02:08] LABS: ANTI-DNASE B STREP ANTIBODIES <78 U/mL (0-120)
== END 2022-01-19 09:04 | disposition home or self-care (01) | DRG 728 ==
LOC: ER 16:10 → MEDS 17:58
PROVIDERS: Physician Assistant; ADMIT Internal Medicine
DX: N49.2 Inflammatory disorders of scrotum (principal); Z21 Asymptomatic human immunodeficiency virus [HIV] infection status; F17.210 Nicotine dependence, cigarettes, uncomplicated; G89.29 Other chronic pain; Z88.2 Allergy status to sulfonamides; Z79.899 Other long term (current) drug therapy; Z90.89 Acquired absence of other organs; Z98.890 Other specified postprocedural states
CPT/HCPCS: 36415; 80053; 80202; 85025; 86060; 86215; 86361; 87536; 96365; 96366; 96375; 99284-25; A9270; J0295; J1170; J1650; J2405; J3370; J7050

== ENCOUNTER 2022-03-01 14:01 | Emergency (ER) | payer MEDICARE, OTHER ==
[~2022-03-01] VITALS: Ht 175.3 cm; Wt 68.0 kg
[~2022-03-01 14:01] MED LIST changes: +Colace100 MG PO; +HYDACE10B PO
[2022-03-01] MEDS ORDERED: HYDR1TAB94 PO (16:53)
== END 2022-03-01 17:00 | disposition home or self-care (01) ==
LOC: ER 14:01
DX: S52.572A Other intraarticular fracture of lower end of left radius, initial encounter for closed fracture (principal); S59.202A Unspecified physeal fracture of lower end of radius, left arm, initial encounter for closed fracture; Z88.2 Allergy status to sulfonamides; Z21 Asymptomatic human immunodeficiency virus [HIV] infection status; F17.210 Nicotine dependence, cigarettes, uncomplicated; W19.XXXA Unspecified fall, initial encounter
CPT/HCPCS: 73100; 73110; 99283-25

== ENCOUNTER 2022-10-06 09:27 | Inpatient (IN) | payer MEDICARE, OTHER ==
[2022-10-06] VITALS (19 sets, daily range): BP systolic 118–162; BP diastolic 65–96
[~2022-10-06] VITALS: Ht 175.3 cm; Wt 87.2 kg
[~2022-10-06 09:27] MED LIST changes: +HYDR1TAB94 PO
[2022-10-06 10:45] LABS: BASOPHILS ABSOLUTE AUTO 0.03 K/mm3 (0.00-0.23); BASOPHILS PERCENT AUTO 0 % (0-2); EOSINOPHILS ABSOLUTE AUTO 0.21 K/mm3 (0.00-0.68); EOSINOPHILS PERCENT AUTO 3 % (0-6); Hematocrit 36.6 % (37.0-53.0); Hemoglobin 11.3 g/dL (13.5-17.5); IMMATURE GRAN ABSOLUTE AUTO 0.07 K/mm3 (0.00-0.10); IMMATURE GRAN PERCENT AUTO 1 % (0-1); LYMPHOCYTES ABSOLUTE AUTO 1.03 K/mm3 (0.84-5.20); LYMPHOCYTES PERCENT AUTO 14 % (21-46); MONOCYTES ABSOLUTE AUTO 0.63 K/mm3 (0.16-1.47); MONOCYTES PERCENT AUTO 9 % (4-13); Mean Corpuscular HGB 23.1 pg (26.0-34.0); Mean Corpuscular HGB Conc 30.9 g/dL (31.5-36.5); Mean Corpuscular Volume 75 fL (80-100); Mean Platelet Volume 10.6 fL (9.1-12.4); NEUTROPHILS ABSOLUTE AUTO 5.44 K/mm3 (1.96-9.15); NEUTROPHILS PERCENT AUTO 74 % (41-73); Platelet Count 292 K/mm3 (150-400); RDW Coefficient Variation 18.3 % (11.7-14.2); RDW Standard Deviation 48.6 fL (35.1-46.3); White Blood Cell Count 7.41 K/mm3 (4.00-11.30)
[2022-10-06 11:05] LABS: Albumin, Blood 3.4 g/dL (3.4-5.0); Albumin/Globulin Ratio 0.8 (0.8-1.8); Bilirubin, Total 0.3 mg/dL (0.1-1.0); Bun/Creatinine Ratio 25.5 (12.0-20.0); Calcium, Blood 8.6 mg/dL (8.5-10.1); Creatinine, Blood 0.94 mg/dL (0.60-1.20); Globulin, Blood 4.4 g/dL (2.2-4.0); Potassium, Blood 3.9 mmol/L (3.5-5.5); Total Protein, Blood 7.8 g/dL (6.4-8.2)
[2022-10-06] MEDS ORDERED: SILD50TA PO (14:32)
--- NOTE | 2022-10-06 15:30 | NUR ---
INTO SDS VIA GURNEY FROM [facility] [place]. PT IS A&OX4, BUT DROWSY. VS WDL. LEFT ARM IS NOTED TO BE SWOLLEN AND FIRM. PT HISTORY, MEDS, AND ALLERGIES REVIEWED. LUNGS CLEAR. NPO STATUS CONFIRMED.
--- NOTE | 2022-10-06 15:40 | NUR ---
PT PREPPED AND CONSENTED BY DR APODACA FOR BLOCK TO LEFT ARM. [address] APODACA AND ADRIANA JOHNSON AT BEDSIDE
--- NOTE | 2022-10-06 16:28 | NUR ---
10/06/22 1628 SAMIR RON PT RECEIVED BLOCK TO LEFT ARM PRIOR TO OR ARRIVAL. PROCEDURE WAS PERFORMED BY DR. RONDON
--- NOTE | 2022-10-06 22:55 | NUR ---
PT ARRIVED ON UNIT AT SHIFT CHANGE. VERY SOMNOLENT. AROUSABLE WITH SOME EFFORT BUT QUICKLY BACK TO SLEEP. POST OP VITALS BEING TAKEN ON SCHEDULE. SPO2 READER LEFT ON PT THROUGHOUT SHIFT THUS FAR AND HE HAS BEEN SATTING AT 100%, HR IN THE 80S, RESPIRATIONS EVEN AND UNLABORED. WILL OCCASIONALLY AWAKE AND BE VERY ACTIVE/IRRITATED THAT HE HAS NOT HAD FOOD BUT THEN QUICKLY FALLS BACK ASLEEP BEFORE FOOD CAN BE GIVEN. TWICE ATTEMPTED OOB TO GET FOOD BUT THEN SETTLED BACK INTO BED AND FELL ASLEEP BEFORE FOOD COULD BE GIVEN. HAD KARLO HOOKER RN AND KISHORE RODRIGUEZ RN ASSESS PT WITH ME TO REASSURE THERE WAS NO CAUSE FOR CONCERN. WILL CONTINUE TO MONITOR.
[2022-10-07 03:38] VITALS: BP 127/70
--- NOTE | 2022-10-07 04:31 | NUR ---
SHIFT SUMMARY. PT HAS BEEN MUCH MORE AWAKE SINCE PREVIOUS NOTE. PT ATE 2 SANDWICHES AND OTHER SNACKS. AOX4, PLEASANT, COOPERATIVE WITH CARE. INDEPENDENT WITH URINAL BUT HAS NOT BEEN OUT OF BED YET. ONLY REPORTED PAIN ONCE THIS MORNING WHICH WAS MANAGED WITH TYLENOL AND TORADOL. CALLS APPROPRIATELY. WOUND VAC FUNCTIONING PROPERLY. ABX ADMINISTERED ON SCHEDULE WIHTOUT DIFFICULTY. BED LOCKED IN LOWEST POSITION. CALL LIGHT LEFT WITHIN REACH.
[2022-10-07 05:07] LABS: BASOPHILS ABSOLUTE AUTO 0.02 K/mm3 (0.00-0.23); BASOPHILS PERCENT AUTO 0 % (0-2); EOSINOPHILS PERCENT AUTO 0 % (0-6); Hematocrit 35.2 % (37.0-53.0); Hemoglobin 10.2 g/dL (13.5-17.5); IMMATURE GRAN ABSOLUTE AUTO 0.16 K/mm3 (0.00-0.10); IMMATURE GRAN PERCENT AUTO 2 % (0-1); LYMPHOCYTES ABSOLUTE AUTO 0.68 K/mm3 (0.84-5.20); LYMPHOCYTES PERCENT AUTO 9 % (21-46); MONOCYTES ABSOLUTE AUTO 0.27 K/mm3 (0.16-1.47); MONOCYTES PERCENT AUTO 4 % (4-13); Mean Corpuscular HGB 22.6 pg (26.0-34.0); Mean Corpuscular Volume 78 fL (80-100); Mean Platelet Volume 10.5 fL (9.1-12.4); NEUTROPHILS ABSOLUTE AUTO 6.38 K/mm3 (1.96-9.15); NEUTROPHILS PERCENT AUTO 85 % (41-73); Platelet Count 267 K/mm3 (150-400); RDW Coefficient Variation 18.5 % (11.7-14.2); RDW Standard Deviation 51.3 fL (35.1-46.3); Red Blood Cell Count 4.52 M/mm3 (4.30-5.90); White Blood Cell Count 7.51 K/mm3 (4.00-11.30)
[2022-10-07 05:35] LABS: Calcium, Blood 7.9 mg/dL (8.5-10.1); Creatinine, Blood 0.89 mg/dL (0.60-1.20); Potassium, Blood 4.2 mmol/L (3.5-5.5)
[2022-10-07 07:37] VITALS: BP 136/83
[2022-10-07 12:39] LABS: Vancomycin, Trough 10.8 ug/mL (5.0-10.0)
[2022-10-07 15:11] VITALS: BP 150/85
--- NOTE | 2022-10-07 18:21 | NUR ---
SHIFT SUMMARY POD1 LUTHER FASCIOTOMY c I&D, A/OX4, VSS, TOLERATING PO, PAIN MANAGED PER EMAR. DRESSING REMAINS INTACT WITH SUCTION IN PLACE ON THE WOUND VAC, UPDATED ORTHO ON NEEDING MEASUREMENTS FOR CARE MANAGEMENT SO THEY CAN GET A HOME WOUND VAC SET UP FOR HIM AT DISCHARGE. NO ACUTE EVENTS THIS SHIFT, CALL LIGHT IN REACH.
[2022-10-07 19:32] VITALS: BP 139/81
--- NOTE | 2022-10-07 23:01 | NUR ---
SPOKE WITH DR. HERNANDEZ ABOUT PT. PT LEFT UPPER ARM IS VERY SWOLLEN, FIRM, WARM TO THE TOUCH. SENSATION, CIRCULATION INTACT. LIMITED MOVEMENT BUT DUE MOSTLY TO PAIN ASSOCIATED WITH MOVEMENT. 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 DISCUSSION WITH DR. HERNANDEZ, WHO PERFORMED FASCIOTOMY AND WOUND VAC PLACEMENT, ABOUT HOW STRANGE CASE IS IN FIRST PLACE BUT HOW DESCRIPTION OF CONDITION IS NOT CAUSE FOR IMMEDIATE CONCERN AT THIS TIME. RECOMMENDED REMOVING KULWANT WRAP IF IT IS CAUSING PT DISCOMFORT. PLAN TO HAVE PT NPO AFTER MIDNIGHT PENDING PROCEDURE WITH DR. CARDENAS TOMORROW. WILL INFORM PT AND CONTINUE TO MONITOR.
[2022-10-08] VITALS (15 sets, daily range): BP systolic 92–163; BP diastolic 61–112
--- NOTE | 2022-10-08 04:48 | NUR ---
SHIFT SUMMARY. PRIMARY GOAL OF SHIFT HAS BEEN PAIN MANAGEMENT. PAIN MOSTLY WELL MANAGED ON CURRENT MEDICATION REGIMEN. PT HAS BEEN NPO SINCE MIDNIGHT PENDING WASHOUT WITH DR. CARDENAS TODAY. CONCERN EARLY IN SHIFT FOR SWELLING IN LUE ABOVE SITE OF WOUND VAC PLACEMENT. SPOKE WITH ORTHO HARVEST WORKER FIELD CROP DR. HERNANDEZ. SEE RELATED NOTE FOR DETAILS. SHIFT OTHERWISE UNREMARKABLE. PT IS AOX4, PLEASANT, COOPERATIVE WITH CARE. CALLS APPROPRIATELY. WOUND VAC FUNCTIONING WELL. BED LOCKED IN LOWEST POSITION. CALL LIGHT LEFT WITHIN REACH.
--- NOTE | 2022-10-08 07:32 | NUR ---
LATE NOTE. AT ABOUT ~0630, PT REPORTED THAT SWELLING IN LEFT UPPER ARM HAD SPREAD TO THE LEFT PART OF HIS CHEST. EXAMINED TO FIND THAT LEFT PART OF PT CHEST WAS NOT FIRM, RAISED, SWOLLEN IN APPEARANCE. CAP REFILL INTACT. FINGERS ALSO HAVE DECREASED MOBILITY AND SENSATION. SENSATION OF FINGERS STILL PARTIALLY INTACT BUT DECREASED. MOBILITY LIMITED. CAP REFILL INTACT. PAIN REMAINS ABOUT STABLE WITH WHAT IT HAS BEEN. DISCUSSED BRIEFLY WITH SU FRYE RN. CALLED HOSPITALIST HAND PACKER DR. FRANK TO EXPLAIN SITUATION. EXPLAINED SITUATION TO DR. FRANK WHO SAID "SOUNDS GOOD". RAN INTO DR. HERNANDEZ HE WAS LEAVING THE PT ROOM. DR. HERNANDEZ IS CONCERNED ABOUT SITUATION AND SAYS HE WAS ABLE TO EXAMINE PT AND IS GOING TO CALL DR. CARDENAS FOR CONSULT.
--- NOTE | 2022-10-08 08:40 | NUR ---
"Spiritual Care | Rapid Response (NOK call) Called the family member listed as next of kin/other on the face sheet. Left message that Pt. has been moved to ICU, and to please contact the ICU (I gave him the Phone#."
--- NOTE | 2022-10-08 09:26 | NUR ---
SATURATOR OPERATOR TO ICU SATURATOR OPERATOR CALLED TO ROOM 302 AT 0820 FOR AMS. WHEN THIS RN ARRIVED TO ROOM, PT AROUSES TO VERBAL STIMULUS, VSS. PT WITH INCREASED SWELLING AND RIGIDITY TO LEFT EXTREMITY EXTENDING UP THE ARM TO THE LEFT PEC AND STERNAL BORDER. DR ZULUAGA AND DR CARDENAS TO BEDSIDE. PT TRANSFERRED TO ICU. PT THEN TAKEN TO STAT CT OF CHEST AND ARM. PT BACK TO ICU AND SHOP FOREMAN CALLED TO BEDSIDE AT THE REQUEST OF ANESTHESIA AND DR ZULUAGA. PT TO BE INTUBATED AND CENTRAL LINE AND ART LINE PLACED PRIOR TO GOING TO O.R. DR LINARES DISCUSSED WITH PT.
[2022-10-08 10:36] LABS: Base Excess Venous 0.2 mmol/L; Bicarbonate Venous 24.3 mmol/L (24.0-30.0); pH Blood Venous 7.37 (7.34-7.37)
[2022-10-08 10:54] LABS: BASOPHILS ABSOLUTE AUTO 0.04 K/mm3 (0.00-0.23); BASOPHILS PERCENT AUTO 0 % (0-2); EOSINOPHILS ABSOLUTE AUTO 0.25 K/mm3 (0.00-0.68); EOSINOPHILS PERCENT AUTO 3 % (0-6); Hematocrit 35.9 % (37.0-53.0); Hemoglobin 11.1 g/dL (13.5-17.5); IMMATURE GRAN ABSOLUTE AUTO 0.28 K/mm3 (0.00-0.10); IMMATURE GRAN PERCENT AUTO 3 % (0-1); LYMPHOCYTES ABSOLUTE AUTO 1.32 K/mm3 (0.84-5.20); LYMPHOCYTES PERCENT AUTO 15 % (21-46); MONOCYTES ABSOLUTE AUTO 0.69 K/mm3 (0.16-1.47); MONOCYTES PERCENT AUTO 8 % (4-13); Mean Corpuscular HGB 23.2 pg (26.0-34.0); Mean Corpuscular HGB Conc 30.9 g/dL (31.5-36.5); Mean Corpuscular Volume 75 fL (80-100); Mean Platelet Volume 9.7 fL (9.1-12.4); NEUTROPHILS ABSOLUTE AUTO 6.51 K/mm3 (1.96-9.15); NEUTROPHILS PERCENT AUTO 72 % (41-73); Platelet Count 265 K/mm3 (150-400); RDW Coefficient Variation 18.1 % (11.7-14.2); RDW Standard Deviation 47.9 fL (35.1-46.3); Red Blood Cell Count 4.79 M/mm3 (4.30-5.90); White Blood Cell Count 9.09 K/mm3 (4.00-11.30)
--- NOTE | 2022-10-08 10:57 | NUR ---
INTUBATION/LINE PLACEMENTS 0927: 50 MCG FENTANYL 0932: 80 MG PROPOFOL 0933: 50 MG ROCURONIUM 0938: PT INTUBATED WITH SIZE 8.0 ETT, 24CM @ GUMS, + BREATH SOUNDS OVER LUNG TOUSSAINT AND + ETCO2 0944: OG TUBE PLACED 0946: 50 MCG FENTANYL 1006: 50 MG PROPOFOL AFTER INTUBATION, PT PREPPED BY DR. LINARES AND CENTRAL LINE PLACED TO [facility] WITHOUT COMPLICATIONS. RIGHT GROIN THEN PREPPED BY DR. LINARES AND ARTERIAL CATHETER PLACED TO THE RIGHT FEMORAL ARTERY WITHOUT COMPLICATION. 16FR TEMP CARLSON CATHETER THEN PLACED BY RN. XRAY TO ROOM AT 1100 FOR CONFIRMATION OF ET, OG AND CL PLACEMENTS.
--- NOTE | 2022-10-08 11:04 | NUR ---
UPDATE/ASSESSMENT/HANDOFF: PT INTUBATED AND SEDATED AT THIS TIME. VENT SETTINGS AC 12, TV 500, PEEP 5, FIO2 30%. PROPOFOL CURRENTLY AT 30MCG/KG. FENTANYL GTT AWAITING ARRIVAL FROM PHARMACY, TO BE STARTED SEDATION ADJUNCT. MEROPENEM AND FLAGYL INFUSED PER ORDERS. REDNESS TO LEFT ARM AND LEFT CHEST WALL REMAINS CONSISTENT WITH INTIIAL PRESENTATION TO ICU. LUE REMAINS EXTREMELY FIRM. FIRMNESS TO LEFT CHEST WALL DECREASED FROM INITIAL ASSESSMENT. CAP REFILL TO LEFT HAND APPROX. [address] W[address] VAC IN PLACE TO LEFT FOREARM. CL TO RIJ, ART LINE TO R FEM ART, TEMP CARLSON IN PLACE WITH SMALL AMT CLEAR YELLOW URINE DRAINING TO GRAVITY, 20 G IV TO R FA, LR INFUSING VIA GTT TUBING. PT AWAITING TRANSFER TO THE O.R. AT THIS TIME. HANDOFF REPORT GIVEN TO ALEX VARGAS TO ASSUME CARE OF THE PT.
[2022-10-08 11:16] LABS: Albumin/Globulin Ratio 0.7 (0.8-1.8); Bilirubin, Total 0.2 mg/dL (0.1-1.0); Bun/Creatinine Ratio 28.8 (12.0-20.0); Calcium, Blood 7.3 mg/dL (8.5-10.1); Creatinine, Blood 0.77 mg/dL (0.60-1.20); Potassium, Blood 3.7 mmol/L (3.5-5.5)
--- NOTE | 2022-10-08 11:30 | NUR ---
ASSUMED CARE BEDSIDE REPORT RECIEVED FROM CASEY AND DR LINARES. PT IS RESTING IN BED, INTUBATED AND SEDATED. CENTRAL LINE AND ARTLINE PLACEMENTS BY DR LINARES IN PROGRESS AT TIMES OF ASSUMING CARE. VITAL SIGNS STABLE. PT RESPONSIVE TO NOXIOUS STIMULI. WOUND VAC TO LEFT FOREARM IN PLACE. LUE WITH EXTENSIVE SWELLING UP TO LEFT CHEST/STYLES. SEE PREVIOUS RN NOTES FOR MORE INFO. WILL CONTINUE TO MONITOR.
[2022-10-08 12:04] LABS: Source, Urine Foley catheter
--- NOTE | 2022-10-08 12:36 | NUR ---
10/08/22 1236 Baljinder Pérez PATIENT INTUBATED AND SEDATED. 2 MD CONSENT.
[2022-10-08 12:58] LABS: Appearance, Urine Clear (Clear); Bilirubin, Urine Neg (Neg); Blood, Urine 1+ (Neg); Color, Urine Yellow (P-Yellow); Glucose Qualitative, Urine Neg (Neg); Ketones, Urine Neg (Neg); Leukocyte Esterase, Urine 1+ (Neg); Nitrite, Urine Neg (Neg); Protein, Urine 2+ (Neg); Urobilinogen, Urine NORM (Normal)
--- NOTE | 2022-10-08 13:09 | NUR ---
0730 10/08/22- DR. HERNANDEZ CAME TO BEDSIDE AND SPOKE W/ PT REGARDING CURRENT STATUS IN REGARDS TO PT'S LEFT ARM AND ISSUES HE'S BEEN HAVING SINCE EARLY THIS MORNING. EXPRESSED PT SHOULD BE TRANSFERRD TO [facility] POSSIBLY. VERBALIZED HE WOULD TOUCH BASE W/ PT'S HOSPITALIST-DR. ZULUAGA.
--- NOTE | 2022-10-08 13:16 | NUR ---
0805 10/08/22- THIS RN CALLED DR. ZULUAGA IN REGARDS TO PT'S UNCONTROLLED PAIN. RN AND MD DISCUSSED PT'S CURRENT CONDITION AND MD ORDERED DILAUDID 1-2MG Q 2 HRS. RN INFORMED MARGARETH THAT MARY EXPRESSED PT SHOULD BE MOVED TO A HIGHER LEVEL OF CARE AND ASKED MD IF HE COULD CONTACT DR. HERNANDEZ TO DISCUSS PT'S DECREASING/CHANGING CONDITION.
--- NOTE | 2022-10-08 13:24 | NUR ---
RAPID RESPONSE CALLED AT 0820 10/08/22- THIS RN WENT INTO PT'S ROOM TO ADMINISTER DILAIDID TO FIND THE PT TACHYPNEIC AND SHOUTING, "THERE IS SOMETHING WRONG, SOMETHING IS WRONG WITH ME, I'M GOING INTO SHOCK, HELP, I'M SWEATING SO MUCH, SOMETHING IS WRONG!" RN DELAYED ADMINISTRATION OF DILAUDID AT THIS MOMENT AND CALLED ALEX SPENCER CHARGE NURSE TO BEDSIDE. PT THEN TEMPORARILY BECAME NON RESPONSIVE TO VERBAL STIMULI AND WOULD NOT ANSWER RN'S QUESTIONS. RN AND CHARGE NURSE BOTH AGREED A RAPID RESPONSE SHOULD BE CALLED DUE TO MENTATION CHANGES. PT'S EYES THEN ROLLED BACK INTO HIS HEAD. RN SHOOK PT AND PT DID OPEN HIS EYES SLIGHTLY, BUT WAS LETHARGIC IN HIS VERBAL RESPONSE WHEN SAYING HIS NAME. PROVIDERS INCLUDING DR. OLIVAREZ, DR CARDENAS, AND DR. ZULUAGA CAME TO BEDSIDE. DUE TO INCREASING FIRMNESS AND THE SPREADING OF FIRMNESS/SWELLING IN PT'S LEFT ARM, IT WAS DECIDED THAT PT NEEDED TO BE TRANSFERRED TO ICU.
[2022-10-08 13:36] LABS: Bacteria Few /hpf; Calcium Oxalate Crystals Rare /hpf; Red Blood Cells, Urine 0-2 /hpf (0-2); Squamous Epithelial Cells Rare /hpf (Few)
[2022-10-08 13:38] LABS: Renal Epithelial Rare /hpf (0-Rare)
[2022-10-08 13:48] LABS: International Normalized Ratio 1.02; Prothrombin Time Results 10.7 Sec (9.7-11.5)
--- NOTE | 2022-10-08 13:50 | NUR ---
0810 10/08/22- DR. CARDENAS CAME TO BEDSIDE TO ASSES PT'S CONDITION. RN DISCUSSED PT'S CHANGING/WORSENING CONDITION WITH .
--- NOTE | 2022-10-08 14:25 | NUR ---
RETURN FROM OR PT RETURNED BACK TO ICU 15 FROM THE OR AT 1315. PT BEING BAGGED BY ANESTHESIOLOGY. PT PLACED BACK ON VENT WITH SAME SETTINGS BY RT. PT INITIALLY WITH LEVOPHED GTT INFUSING, THEN INFUSION STOPPED BY ANESTHESIOLOGIST. VITAL SIGNS STABLE AT THIS TIME. CENTRAL LINE DRESSING SATUATED WITH OOZING BLOOD. DRESSING CHANGED AT THIS TIME. PROPOFOL GTT AND FENTANYL GTT RESTARTED. PT RESTING QUIETLY. LUTHER WITH WET TO DRY DRESSING IN PLACE, WITH KULWANT WRAP FROM HAND TO SHOULDER. DRESSING WITH SMALL AMOUNT OF BLOODY OUTPUT SATURATED ON THE BACK SIDE OF UPPER ARM AND AT ELBOW. PT BP HYPERTENSIVE INITALLY, THEN PT BECAME HYPOTENSIVE, LEVOPHED RESTARTED AT THIS TIME. SEE ICU FLOWSHEET FOR TITRATIONS. CAP REFILL NOTED TO LEFT FINGERS. WILL CONTINUE TO MONITOR.
[2022-10-08 15:45] LABS: Influenza A, PCR NEGATIVE (NEGATIVE); Influenza B, PCR NEGATIVE (NEGATIVE); Resp Syncytial Virus, PCR NEGATIVE (NEGATIVE); SARS-Cov-2 (COVID-19) PCR, MMC NEGATIVE (NEGATIVE)
--- NOTE | 2022-10-08 17:53 | NUR ---
SHIFT SUMMARY / TRANSFER PT REMAINS INTUBATED AND SEDATED. VENT SETTINGS UNCHANGED. PT SEDATED WITH PROPOFOL AND FENTANYL GTT. LEVOPHED INFUSING. SEE FLOW SHEET FOR TITRATIONS. CENTRAL LINE TO RIJ C/D/I. ART LINE TO RIGHT FEMORAL SITE C/D/I. CARLSON TEMP PROBE REMAINS IN PLACE WITH DARK YELLOW OUTPUT NOTED. DRESSINGS TO LEFT ARM INTACT, OOZING BLOOD AT DEPENDENT SITES. REPORT CALLED TO MARIO AT [facility]. AWAITING REACH TRANSPORT AT THIS TIME. WILL CONTINUE TO MONITOR AND REPORT OFF TO AIR TRANSPORT CREW UPON ARRIVAL.
--- NOTE | 2022-10-08 18:42 | NUR ---
TRANSFER TO [facility] PT LEFT ICU 15 WITH REACH TRANSPORT AT 1835. ALL PT BELONGINGS SENT WITH PT. REPORT GIVEN, ALL QUESTIONS ANSWERED.
[2022-10-13 07:09] LABS: LYME TOTAL ANTIBODY CIA Negative (Negative)
== END 2022-10-08 18:40 | disposition short-term general hospital (02) | DRG 501 ==
LOC: ER 09:27 → MEDS 09:28 → ER 09:28 → MEDS 18:56 → ICUE 10-07 10:26 → MEDS 10-07 10:26 → ICUE 10-07 10:26
PROVIDERS: Internal Medicine; Internal Medicine Critical Care Medicine; Orthopaedic Surgery; Student in an Organized Health Care Education/Training Program; Surgery; ADMIT Family Medicine
PROC: 01N50ZZ Release Median Nerve, Open Approach (ICD-10-PCS; 2022-10-06)
PROC: 0KN80ZZ Release Left Upper Arm Muscle, Open Approach (ICD-10-PCS; 2022-10-06)
PROC: 0T9B70Z Drainage of Bladder with Drainage Device, Via Natural or Artificial Opening (ICD-10-PCS; 2022-10-08)
PROC: 02HV33Z Insertion of Infusion Device into Superior Vena Cava, Percutaneous Approach (ICD-10-PCS; 2022-10-08)
PROC: 04HY32Z Insertion of Monitoring Device into Lower Artery, Percutaneous Approach (ICD-10-PCS; 2022-10-08)
PROC: 0WB80ZX Excision of Chest Wall, Open Approach, Diagnostic (ICD-10-PCS; 2022-10-08)
PROC: 0BH17EZ Insertion of Endotracheal Airway into Trachea, Via Natural or Artificial Opening (ICD-10-PCS; principal; 2022-10-08 11:00)
DX: M60.842 Other myositis, left hand (principal); B20 Human immunodeficiency virus [HIV] disease; L03.114 Cellulitis of left upper limb; M62.82 Rhabdomyolysis; R65.10 Systemic inflammatory response syndrome (SIRS) of non-infectious origin without acute organ dysfunction; M79.A9 Nontraumatic compartment syndrome of other sites; Z66 Do not resuscitate; Z20.822 Contact with and (suspected) exposure to COVID-19; D63.8 Anemia in other chronic diseases classified elsewhere; N49.2 Inflammatory disorders of scrotum; F17.210 Nicotine dependence, cigarettes, uncomplicated; Z90.89 Acquired absence of other organs; Z90.79 Acquired absence of other genital organ(s); Z71.6 Tobacco abuse counseling; Z88.2 Allergy status to sulfonamides; Z79.2 Long term (current) use of antibiotics; Z79.891 Long term (current) use of opiate analgesic; Z79.899 Other long term (current) drug therapy
CPT/HCPCS: 0241U; 31500; 36415; 36556; 36620; 51702; 71045; 71250; 73201; 80048; 80053; 80202; 81001; 82550; 82803; 82947; 83605; 85025; 85610; 86618; 86850; 86900; 86901; 87070; 87071; 87075; 87086; 87205; 88305; 88312; 88313; 88314; 88319; 88341; 88342; 94002; 94760; 96365-59; 96366; 96367-59; 96375; 96375-59; 96376; 96376-59; 99285-25; A9270; C1751; G0378; J1100; J1170; J1885; J2185; J2250; J2310; J2370; J2405; J2543; J2704; J2765; J3010; J3370; J7030; J7040; J7050; J7060; J7120; Q9967